=== PATIENT | male | born 1965 | race Caucasian/White ===

== ENCOUNTER 2024-06-03 11:19 | Emergency (ER) | payer MEDICARE ==
[2024-06-03] MEDS ORDERED: diphenhydrAMINE 50 MG/ML VIAL ONE (11:47)
[2024-06-03] MEDS ORDERED: Metoclopramide HCl 10 MG (2 mL) VIAL ONE (11:48)
[2024-06-03] MEDS ORDERED: Lisinopril 20 MG TAB ONE (12:03)
[2024-06-03 12:05] LABS: #Basophils 0.1 thou/uL (0.0-0.2); #Eosinphils 0.2 thou/uL (0.0-0.7); #Lymphocytes 1.6 thou/uL (1.20-3.40); #Monocytes 0.5 thou/uL (0.11-0.59); #Neutrophils 4.8 thou/uL (1.40-6.50); %Basophils 1.2 % (0.0-1.0); %Eosinophils 2.8 % (0.0-10.0); %Lymphocytes 22.4 % (21.0-51.0); %Monocytes 7.4 % (0.0-10.0); %Neutrophils 66.3 % (42.0-75.0); Hematocrit 40.4 % (42.0-52.0); Hemoglobin 13.3 g/dL (14.0-18.0); Mean Corpuscular HGB CONC 32.9 g/dL (32.0-36.0); Mean Corpuscular Hemoglobin 28.7 pg (27.0-31.0); Mean Corpuscular Volume 87.1 fl (78.0-98.0); Mean Platelet Volume 7.7 fL (7.4-10.4); Platelet Count 270 10x3/uL (130-400); RBC Distribution Width 12.5 % (11.5-14.5); Red Blood Cell (RBC) Count 4.63 mill/uL (4.70-6.10); White Blood Cell (WBC) Count 7.3 10x3/uL (4.8-10.8)
[2024-06-03 12:21] LABS: ALT (SGPT) 14 U/L (8-55); AST (SGOT) 15 U/L (5-34); Albumin 3.6 g/dL (3.5-5.0); Alkaline Phosphatase 84 U/L (40-110); Anion Gap 14 mmol/L (10-20); BUN (Urea Nitrogen) 11 mg/dL (8.4-25.7); Bilirubin, Total 0.4 mg/dL (0.2-1.2); CK (CPK) 49 U/L (30-200); Calc. Creatinine Clearance 0 mL/min (70-130); Calcium 9.6 mg/dL (7.8-10.44); Carbon Dioxide 26 mmol/L (22-29); Chloride 108 mmol/L (98-107); Estimated GFR 93; Glucose 86 mg/dL (70-105); Potassium 4.8 mmol/L (3.5-5.1); Protein, Total 6.6 g/dL (6.0-8.3); Sodium 143 mmol/L (136-145)
[2024-06-03 12:22] LABS: Troponin I Less than 0.010 ng/mL (< 0.028)
[2024-06-03 13:03] LABS: SARS-CoV-2 E Target Positive; SARS-CoV-2 N2 Target Positive; SARS-CoV-2 NAA Rapid Test DETECTED (NotDetected); SARS-CoV-2 RdRP gene Positive
[2024-06-03] MEDS ORDERED: Dexamethasone 10 MG/ML VIAL ONE (13:25)
== END 2024-06-03 13:30 | disposition home or self-care (01) ==
LOC: BURERS 11:19
DX: U07.1 COVID-19 (principal); I10 Essential (primary) hypertension; F17.210 Nicotine dependence, cigarettes, uncomplicated; Z79.899 Other long term (current) drug therapy
CPT/HCPCS: 70450; 71045; 80053; 82550; 84484; 85025; 87804 ×2; 93005; J1100; J1200; J2765; U0002; 96372; 96374; 96375